=== PATIENT | female | born 1980 | race Caucasian/White ===

== ENCOUNTER 2020-05-09 14:00 | Inpatient (IN) ==
[2020-05-09] MEDS ORDERED: cefOXitin 2,000 MG in Water for inj. (sterile) 20 ML IVP ONE (14:19)
[2020-05-09] MEDS ORDERED: Ringers Solution, Lactated 1,000 ML IVC SCH (14:30)
[2020-05-09] MEDS ORDERED: Ondansetron 4 MG/2 ML VIAL IVP PRN (14:49)
[2020-05-09] MEDS ORDERED: Acetaminophen IV 1,000 MG/100 ML BAG IVPB ONE (14:49)
[2020-05-09] MEDS ORDERED: Promethazine 6.25 MG in Water for inj. (sterile) 20 ML IVPB PRN (14:49)
[2020-05-09] MEDS ORDERED: Famotidine 20 MG/2 ML VIAL IVP ONE (14:49)
[2020-05-09] MEDS ORDERED: Albuterol 2.5 MG/3 ML NEBULIZER IH PRN (14:49)
[2020-05-09] MEDS ORDERED: *HR* HYDROmorphone PF 0.5 MG/0.5 ML SYRINGE IVP PRN (14:49)
[2020-05-09] MEDS ORDERED: *HR* OxyCODONE Immed Rel 5 MG TABLET PO PRN (14:49)
[2020-05-09] MEDS ORDERED: Fluconazole 200 MG/100 ML 200 MG/100 ML BAG IVPB ONE (16:34)
[2020-05-09] MEDS ORDERED: *HR* HYDROMORPHONE 2 MG/ML VIAL ONE (18:51)
[2020-05-09] MEDS ORDERED: CefOXitin 1,000 MG VIAL ONE (19:39)
[2020-05-09] MEDS ORDERED: *HR* Rocuronium Bromide 50 MG/5 ML VIAL ONE (19:47)
[2020-05-09] MEDS ORDERED: *HR* Metoprolol 5 MG/5 ML VIAL IVP ONE (19:51)
[2020-05-09] MEDS ORDERED: *HR* Metoprolol 5 MG/5 ML VIAL IVP PRN (22:53)
[2020-05-09] MEDS ORDERED: Dextrose Gel 15 GM/37.5 ML TUBE PO PRN ×2 (22:53)
[2020-05-09] MEDS ORDERED: Naloxone 0.4 MG/ML INJ IVP PRN (22:53)
[2020-05-09] MEDS ORDERED: *HR* Dextrose 50 % in Water (Vial) 50 ML VIAL IVP PRN (22:53)
[2020-05-09] MEDS ORDERED: D5% in Water 1,000 ML IVC PRN (22:53)
[2020-05-10] MEDS: Insulin LISPRO 300 UNITS/3 ML VIAL SUBQ SCH ×4 (00:17→18:00)
[2020-05-10] MEDS: 0.9 % Sodium Chloride 1,000 ML IVC SCH ×3 (00:32→16:25)
[2020-05-10] MEDS: Piperacillin/Tazobactam 3.375 GM in 0.9 % Sodium Chloride Mini Bag 100 ML IVPB SCH ×3 (00:32→16:21)
[2020-05-10] MEDS: Acetaminophen IV 1,000 MG/100 ML BAG IVPB SCH ×4 (00:32→17:31)
[2020-05-10 02:09] LABS: Basophils # 0.1 K/mcL (0.0-0.2); Basophils % 0.2 %; Hematocrit 41.1 % (35.3-44.9); Hemoglobin 12.7 g/dL (11.5-15.4); Immature Granulocytes % 0.6 % (0-4); Lymphocytes % 4.3 %; Mean Corpuscular HGB Conc 30.9 g/dL (31.6-35.5); Mean Corpuscular Hemoglobin 23.6 pg (28.0-33.3); Mean Corpuscular Volume 76.5 fL (83.0-100.0); Mean Platelet Volume 8.5 fL (9.4-12.4); Monocytes # 1.2 K/mcL (0.0-1.3); Monocytes % 5.2 %; Neutrophils # 20.6 K/mcL (1.6-8.9); Platelet Count 395 K/mcL (140-400); Red Blood Count 5.37 M/mcL (3.82-4.97); Red Cell Distribution Width 15.9 % (11.5-14.5); Segmented Neutrophils % 89.7 %
[2020-05-10 02:19] LABS: BUN/Creatinine Ratio 14 (6-26); Blood Urea Nitrogen 9 mg/dL (6-20); Calcium 8.3 mg/dL (8.6-10.3); Carbon Dioxide 25 mEq/L (23-29); Chloride 105 mEq/L (98-107); Glucose 143 mg/dL (70-105); Osmolality,Calculated 287 (280-300); Phosphorous 3.7 mg/dL (2.7-4.5); Potassium 4.1 mEq/L (3.5-5.1); Sodium 138 mEq/L (136-145); eGFR For African Americans > 60 (> 60); eGFR For Non-African Americans > 60 (> 60)
[2020-05-10] MEDS: Pantoprazole 40 MG VIAL IVP SCH (07:41)
[2020-05-10] MEDS: Fluticasone Propionate Nasal 50 MCG/SPRAY BOTTLE NS SCH (07:45)
[2020-05-10] MEDS ORDERED: Ketorolac 15 MG/ML VIAL IVP PRN (08:49)
[2020-05-10] MEDS: Chloraseptic Spray 177 ML BOTTLE MM PRN ×2 (10:08→20:11)
[2020-05-10] MEDS: Acetylcysteine 10% 2 ML INHSOL IH SCH ×3 (10:59→23:45)
[2020-05-10] MEDS: Ketorolac 15 MG/ML VIAL IVP SCH ×2 (11:42→17:32)
[2020-05-10] MEDS: Ipratropium/Albuterol Neb 3 ML IH SCH ×2 (16:07→23:45)
[2020-05-10] MEDS: *HR* Heparin 5,000 UNIT/ML VIAL SQ SCH (17:32)
[2020-05-11] MEDS: Piperacillin/Tazobactam 3.375 GM in 0.9 % Sodium Chloride Mini Bag 100 ML IVPB SCH ×3 (00:08→15:43)
[2020-05-11] MEDS: Ketorolac 15 MG/ML VIAL IVP SCH ×4 (00:09→17:22)
[2020-05-11] MEDS: 0.9 % Sodium Chloride 1,000 ML IVC SCH (00:09)
[2020-05-11] MEDS: Acetaminophen IV 1,000 MG/100 ML BAG IVPB SCH ×4 (00:50→17:21)
[2020-05-11] MEDS: Insulin LISPRO 300 UNITS/3 ML VIAL SUBQ SCH ×4 (00:51→17:12)
[2020-05-11 05:42] LABS: Basophils # 0.1 K/mcL (0.0-0.2); Basophils % 0.5 %; Eosinophils # 0.3 K/mcL (0.0-0.6); Eosinophils % 1.9 %; Hematocrit 33.9 % (35.3-44.9); Immature Granulocytes % 0.8 % (0-4); Lymphocytes # 2.6 K/mcL (0.6-4.6); Lymphocytes % 19.9 %; Mean Corpuscular HGB Conc 30.7 g/dL (31.6-35.5); Mean Corpuscular Hemoglobin 23.6 pg (28.0-33.3); Mean Corpuscular Volume 76.9 fL (83.0-100.0); Mean Platelet Volume 8.8 fL (9.4-12.4); Monocytes # 0.9 K/mcL (0.0-1.3); Monocytes % 6.7 %; Neutrophils # 9.3 K/mcL (1.6-8.9); Platelet Count 303 K/mcL (140-400); Red Blood Count 4.41 M/mcL (3.82-4.97); Red Cell Distribution Width 16.3 % (11.5-14.5); Segmented Neutrophils % 70.2 %; White Blood Count 13.2 K/mcL (4.3-11.1)
[2020-05-11 05:46] LABS: BUN/Creatinine Ratio 16 (6-26); Blood Urea Nitrogen 10 mg/dL (6-20); Calcium 7.9 mg/dL (8.6-10.3); Carbon Dioxide 24 mEq/L (23-29); Chloride 107 mEq/L (98-107); Glucose 90 mg/dL (70-105); Magnesium 1.9 mg/dL (1.6-2.6); Osmolality,Calculated 287 (280-300); Phosphorous 3.1 mg/dL (2.7-4.5); Potassium 3.8 mEq/L (3.5-5.1); Sodium 139 mEq/L (136-145); eGFR For African Americans > 60 (> 60); eGFR For Non-African Americans > 60 (> 60)
[2020-05-11 05:48] LABS: Hemoglobin 10.4 g/dL (11.5-15.4)
[2020-05-11] MEDS: *HR* Heparin 5,000 UNIT/ML VIAL SQ SCH ×2 (06:09→17:22)
[2020-05-11] MEDS: Ipratropium/Albuterol Neb 3 ML IH SCH ×3 (08:10→23:08)
[2020-05-11] MEDS: Acetylcysteine 10% 2 ML INHSOL IH SCH ×3 (08:10→23:09)
[2020-05-11] MEDS: Pantoprazole 40 MG VIAL IVP SCH (08:36)
[2020-05-11] MEDS: Fluticasone Propionate Nasal 50 MCG/SPRAY BOTTLE NS SCH (08:38)
[2020-05-11] MEDS: Chloraseptic Spray 177 ML BOTTLE MM PRN ×3 (08:46→22:36)
[2020-05-11] MEDS: D5% in 0.45% NACL w KCl 20 MEQ/1,000 ML MLS IVC SCH (12:19)
[2020-05-12] MEDS: Acetaminophen IV 1,000 MG/100 ML BAG IVPB SCH ×5 (00:45→23:42)
[2020-05-12] MEDS: Ketorolac 15 MG/ML VIAL IVP SCH ×2 (00:45→05:10)
[2020-05-12] MEDS: Piperacillin/Tazobactam 3.375 GM in 0.9 % Sodium Chloride Mini Bag 100 ML IVPB SCH ×4 (00:49→23:40)
[2020-05-12 02:54] LABS: Basophils # 0.1 K/mcL (0.0-0.2); Basophils % 0.8 %; Eosinophils # 0.7 K/mcL (0.0-0.6); Eosinophils % 5.6 %; Hematocrit 36.2 % (35.3-44.9); Hemoglobin 10.7 g/dL (11.5-15.4); Immature Granulocytes % 0.9 % (0-4); Lymphocytes # 3.4 K/mcL (0.6-4.6); Lymphocytes % 25.8 %; Mean Corpuscular HGB Conc 29.6 g/dL (31.6-35.5); Mean Corpuscular Hemoglobin 22.8 pg (28.0-33.3); Mean Platelet Volume 8.7 fL (9.4-12.4); Monocytes # 0.8 K/mcL (0.0-1.3); Monocytes % 6.2 %; Neutrophils # 8.1 K/mcL (1.6-8.9); Platelet Count 313 K/mcL (140-400); Red Cell Distribution Width 16.4 % (11.5-14.5); Segmented Neutrophils % 60.7 %; White Blood Count 13.3 K/mcL (4.3-11.1)
[2020-05-12 03:12] LABS: BUN/Creatinine Ratio 16 (6-26); Blood Urea Nitrogen 10 mg/dL (6-20); Carbon Dioxide 23 mEq/L (23-29); Chloride 105 mEq/L (98-107); Glucose 85 mg/dL (70-105); Osmolality,Calculated 280 (280-300); Potassium 3.4 mEq/L (3.5-5.1); Sodium 136 mEq/L (136-145); eGFR For African Americans > 60 (> 60); eGFR For Non-African Americans > 60 (> 60)
[2020-05-12] MEDS: *HR* Heparin 5,000 UNIT/ML VIAL SQ SCH ×2 (05:10→17:51)
[2020-05-12] MEDS: Insulin LISPRO 300 UNITS/3 ML VIAL SUBQ SCH ×5 (07:08→23:55)
[2020-05-12] MEDS: Acetylcysteine 10% 2 ML INHSOL IH SCH (07:38)
[2020-05-12] MEDS: Ipratropium/Albuterol Neb 3 ML IH SCH (07:38)
[2020-05-12] MEDS: Pantoprazole 40 MG VIAL IVP SCH (07:52)
[2020-05-12] MEDS: Ketorolac 30 MG/ML VIAL IVP SCH ×4 (07:52→23:41)
[2020-05-12] MEDS: D5% in 0.45% NACL w KCl 20 MEQ/1,000 ML MLS IVC SCH ×3 (07:54→19:42)
[2020-05-12] MEDS: Fluticasone Propionate Nasal 50 MCG/SPRAY BOTTLE NS SCH (07:55)
[2020-05-12] MEDS ORDERED: Ipratropium/Albuterol Neb 3 ML IH PRN (10:47)
[2020-05-12] MEDS ORDERED: Ondansetron 4 MG/2 ML VIAL IVP PRN (12:17)
[2020-05-12] MEDS: Metoclopramide 10 MG/2 ML VIAL IVP SCH ×3 (12:26→23:42)
[2020-05-12] MEDS: *HR* FentaNYL (PF) 100 MCG/2 ML VIAL IVP PRN ×2 (20:15→23:55)
[2020-05-13] MEDS: D5% in 0.45% NACL w KCl 20 MEQ/1,000 ML MLS IVC SCH ×4 (00:13→20:51)
[2020-05-13 05:23] LABS: Basophils # 0.1 K/mcL (0.0-0.2); Basophils % 0.8 %; Eosinophils # 0.9 K/mcL (0.0-0.6); Eosinophils % 7.1 %; Hematocrit 40.6 % (35.3-44.9); Hemoglobin 12.2 g/dL (11.5-15.4); Immature Granulocytes % 0.8 % (0-4); Lymphocytes # 3.2 K/mcL (0.6-4.6); Lymphocytes % 25.1 %; Mean Corpuscular Hemoglobin 22.7 pg (28.0-33.3); Mean Corpuscular Volume 75.6 fL (83.0-100.0); Mean Platelet Volume 8.6 fL (9.4-12.4); Monocytes # 0.7 K/mcL (0.0-1.3); Monocytes % 5.3 %; Neutrophils # 7.8 K/mcL (1.6-8.9); Platelet Count 402 K/mcL (140-400); Red Blood Count 5.37 M/mcL (3.82-4.97); Red Cell Distribution Width 16.2 % (11.5-14.5); Segmented Neutrophils % 60.9 %; White Blood Count 12.8 K/mcL (4.3-11.1)
[2020-05-13] MEDS: Acetaminophen IV 1,000 MG/100 ML BAG IVPB SCH ×3 (05:36→18:09)
[2020-05-13] MEDS: *HR* Heparin 5,000 UNIT/ML VIAL SQ SCH ×2 (05:37→18:09)
[2020-05-13] MEDS: Ketorolac 30 MG/ML VIAL IVP SCH ×3 (05:37→18:09)
[2020-05-13] MEDS: Metoclopramide 10 MG/2 ML VIAL IVP SCH ×3 (05:38→18:09)
[2020-05-13 05:39] LABS: BUN/Creatinine Ratio 10 (6-26); Blood Urea Nitrogen 6 mg/dL (6-20); Calcium 8.5 mg/dL (8.6-10.3); Carbon Dioxide 26 mEq/L (23-29); Chloride 106 mEq/L (98-107); Glucose 93 mg/dL (70-105); Magnesium 1.9 mg/dL (1.6-2.6); Osmolality,Calculated 283 (280-300); Phosphorous 3.2 mg/dL (2.7-4.5); Potassium 3.8 mEq/L (3.5-5.1); Sodium 138 mEq/L (136-145); eGFR For African Americans > 60 (> 60); eGFR For Non-African Americans > 60 (> 60)
[2020-05-13] MEDS: Insulin LISPRO 300 UNITS/3 ML VIAL SUBQ SCH ×3 (05:44→18:15)
[2020-05-13] MEDS: Piperacillin/Tazobactam 3.375 GM in 0.9 % Sodium Chloride Mini Bag 100 ML IVPB SCH ×2 (07:43→16:07)
[2020-05-13] MEDS: Pantoprazole 40 MG VIAL IVP SCH (07:44)
[2020-05-13] MEDS: Fluticasone Propionate Nasal 50 MCG/SPRAY BOTTLE NS SCH (07:45)
[2020-05-13] MEDS ORDERED: *HR* HYDROcodone/Acet 5/325 mg TABLET PO PRN (19:41)
[2020-05-14] MEDS: Piperacillin/Tazobactam 3.375 GM in 0.9 % Sodium Chloride Mini Bag 100 ML IVPB SCH ×2 (00:01→07:40)
[2020-05-14] MEDS: Metoclopramide 10 MG/2 ML VIAL IVP SCH ×2 (00:01→06:15)
[2020-05-14 01:16] LABS: Basophils # 0.1 K/mcL (0.0-0.2); Basophils % 0.5 %; Eosinophils # 0.9 K/mcL (0.0-0.6); Eosinophils % 6.3 %; Hematocrit 38.3 % (35.3-44.9); Hemoglobin 11.9 g/dL (11.5-15.4); Immature Granulocytes % 1.2 % (0-4); Lymphocytes # 3.8 K/mcL (0.6-4.6); Mean Corpuscular HGB Conc 31.1 g/dL (31.6-35.5); Mean Corpuscular Hemoglobin 23.6 pg (28.0-33.3); Mean Corpuscular Volume 75.8 fL (83.0-100.0); Mean Platelet Volume 8.4 fL (9.4-12.4); Monocytes # 0.8 K/mcL (0.0-1.3); Monocytes % 5.4 %; Neutrophils # 8.3 K/mcL (1.6-8.9); Platelet Count 383 K/mcL (140-400); Red Blood Count 5.05 M/mcL (3.82-4.97); Red Cell Distribution Width 15.8 % (11.5-14.5); Segmented Neutrophils % 59.6 %; White Blood Count 13.9 K/mcL (4.3-11.1)
[2020-05-14] MEDS: D5% in 0.45% NACL w KCl 20 MEQ/1,000 ML MLS IVC SCH (04:02)
[2020-05-14] MEDS: *HR* Heparin 5,000 UNIT/ML VIAL SQ SCH (06:10)
[2020-05-14] MEDS: Ibuprofen 600 MG TABLET PO SCH ×3 (07:39→15:48)
[2020-05-14] MEDS ORDERED: Acetaminophen 325 MG TABLET PO PRN (11:00)
[2020-05-14] MEDS: Fluticasone Propionate Nasal 50 MCG/SPRAY BOTTLE NS SCH (12:42)
[2020-05-14 19:01] VITALS: BP 147/95
== END 2020-05-14 19:45 | disposition home or self-care (01) | DRG 231 ==
LOC: SAMDAY 14:00 → 3ANU 22:52
PROVIDERS: ADMIT Surgery; ATTEND Surgery